=== PATIENT | female | born 1975 | race Caucasian/White ===

== ENCOUNTER → 2021-01-28 | Outpatient (CLI) | payer BC ==
[2021-01-28 14:42] LABS: CHOLESTEROL 193 MG/DL (< 200); HDL CHOLESTEROL 60 MG/DL (40-60); TRIGLYCERIDES 252 MG/DL (<150); VLDL CHOLESTEROL 50 MG/DL (5-40)
== END ==
LOC: LAB FS 09:43
PROVIDERS: ATTEND Family Medicine
DX: E78.5 Hyperlipidemia, unspecified (principal)
CPT/HCPCS: 36415; 80061

== ENCOUNTER → 2021-03-30 | Outpatient (CLI) | payer BC ==
[2021-03-30 12:38] LABS: POTASSIUM 4.2 MMOL/L (3.6-5.0)
[2021-03-30 12:39] LABS: ALBUMIN 4.2 GM/DL (3.2-4.5); BILIRUBIN,TOTAL 0.4 MG/DL (0.1-1.0); CALCIUM 9.5 MG/DL (8.5-10.1); CREATININE SERUM 0.75 MG/DL (0.60-1.30); TOTAL PROTEIN 7.1 GM/DL (6.4-8.2)
== END ==
LOC: LAB FS 10:57
PROVIDERS: ATTEND Family Medicine
DX: Z01.419 Encounter for gynecological examination (general) (routine) without abnormal findings (principal)
CPT/HCPCS: 36415; 80053

== ENCOUNTER 2021-04-20 05:36 | Outpatient (CLI) | payer BC ==
[~2021-04-20] VITALS: Ht 160 cm; Wt 77.3 kg
[2021-04-20] MEDS ORDERED: SIMV20TA26 PO (15:07)
[2021-04-20] MEDS ORDERED: FEXO-14 PO (15:07)
[2021-04-20] MEDS ORDERED: MULT-141 PO (15:07)
[2021-04-20] MEDS ORDERED: MAGN200T PO (15:07)
[2021-04-20] MEDS ORDERED: MELA1TAB20 PO (15:07)
[2021-04-20] MEDS ORDERED: CITA20TA9 PO (15:07)
[2021-04-20] MEDS ORDERED: [UNRECOGNIZED DRUG - CODE] PO (15:07)
[2021-04-20] MEDS ORDERED: PANT40TA52 PO (15:07)
== END 2021-04-20 15:08 ==
LOC: PREOP 05:36
PROVIDERS: ATTEND Surgery
DX: Z01.818 Encounter for other preprocedural examination (principal)

== ENCOUNTER 2021-04-28 10:51 | Day surgery (SDC) | payer BC ==
[~2021-04-28] VITALS: Ht 160 cm; Wt 77.3 kg
[~2021-04-28 10:51] MED LIST: CITA20TA9 PO; FEXO-14 PO; MAGN200T PO; MELA1TAB20 PO; MULT-141 PO; PANT40TA52 PO; SIMV20TA26 PO; [UNRECOGNIZED DRUG - CODE] PO
[2021-04-28] MEDS ORDERED: LACTATED RINGERS 1,000 ML IV ONE (10:56)
[2021-04-28] MEDS ORDERED: LACTATED RINGERS 1,000 ML IV STA (11:05)
[2021-04-28] MEDS ORDERED: HURRICAINE EXT TUBE (BENZOCAINE) XX PRN (11:15)
[2021-04-28 11:20] VITALS: BP 123/86
--- NOTE | 2021-04-28 11:36 | Progress Note-Pre Operative ---
Pre-Operative Progress Note H&P Reviewed The H&P was reviewed, patient examined and no changes noted. Date Seen by Provider: Apr 28, 2021 Time Seen by Provider: 11:36 Date H&P Reviewed: Apr 28, 2021 Time H&P Reviewed: 11:36 Pre-Operative Diagnosis: epigastric pain gerd, screening colonoscopy MEGHAN ROBISON DO Apr 28, 2021 11:36
[2021-04-28] MEDS ORDERED: PROPOFOL INJECTION 50 ML IV ONE (12:08)
--- NOTE | 2021-04-28 12:48 | Progress Note-Post Operative ---
Post-Operative Progess Note Surgeon (s)/Cementer Hand (s) Surgeon MEGHAN ROBISON DO Cementer Hand: na Pre-Operative Diagnosis epigastric pain gerd, screening colonoscopy Post-Operative Diagnosis Hiatal hernia with linear ulceration, reflux esophagitis, colon polyps Procedure & Operative Findings Date of Procedure 04/28/21 Procedure Performed/Findings egd c biopsies, colonoscopy c hot bx polypectomy and snare polypectomy Anesthesia Type per rubber grinder Estimated Blood Loss Estimated blood loss (mL): none Specimens/Packing Specimens Removed antrum, ge, colon polyps MEGHAN ROBISON DO Apr 28, 2021 12:48
--- NOTE | 2021-04-28 12:49 | Anesthesia-General Post-Op ---
MAC Patient Condition Mental Status/LOC: Same as Preop Cardiovascular: Satisfactory Nausea/Vomiting: Absent Respiratory: Satisfactory Pain: Controlled Complications: Absent Post Op Complications Complications None Follow Up Care/Instructions Patient Instructions None needed. Anesthesiology Discharge Order Discharge Order Patient is doing well, no complaints, stable vital signs, no apparent adverse anesthesia problems. No complications reported per nursing. MITCHEL SCHRADER CRNA Apr 28, 2021 12:48
[2021-04-28 12:50] VITALS: BP 125/78
[2021-04-28] MEDS ORDERED: SUCR1TAB36 PO (12:50)
--- NOTE | 2021-04-28 12:52 | Discharge Inst-Simple/Standard ---
Discharge Inst-Standard Discharge Medications New, Converted or Re-Newed RX: Transmitted to Pharmacy Patient Instructions/Follow Up Plan of Care/Instructions/FU: 2 weeks Trace Activity as Tolerated: Yes Discharge Diet: Regular Diet MEGHAN ROBISON DO Apr 28, 2021 12:52
[2021-04-28 13:00] VITALS: BP 121/76
[2021-04-28 13:25] VITALS: BP 114/84
--- NOTE | 2021-04-28 17:09 | OPERATIVE REPORT ---
DATE OF SERVICE: 04/28/2021 PREOPERATIVE DIAGNOSES: Epigastric abdominal pain, gastroesophageal reflux disease, screening colonoscopy. POSTOPERATIVE DIAGNOSES: Hiatal hernia with linear ulcerations at the GE junction, reflux esophagitis, colon polyps. PROCEDURE: EGD with biopsies, colonoscopy with hot biopsy polypectomy x1, and snare polypectomy x1. ANESTHESIA: Per FLEET MANAGER. SURGEON: Meghan Woodward DO ESTIMATED BLOOD LOSS: None. COMPLICATIONS: None. SPECIMENS: Antrum, GE junction, colon polyps. INDICATIONS: The patient is a 45-year-old female with epigastric abdominal pain, gastroesophageal reflux disease and needing screening colonoscopy. She understands risks and benefits of procedure and wished to proceed. Consent was signed in the chart. DESCRIPTION OF PROCEDURE: The patient was taken to the endoscopy suite, placed in left lateral recumbent position. Timeout was performed. Scope was inserted in mouth, down the esophagus, stomach and into the duodenum without difficulty. There were no polyps, masses, or ulcerations within the duodenum. Scope was slowly retracted back into the stomach where it was further insufflated. No polyps, masses, or ulcerations. Biopsy of the antrum was obtained. Scope was retroflexed noting hiatal hernia, no other pathology. Scope was returned to its normal position, slowly withdrawn to distal esophagus. There is a linear ulceration in the GE junction. Biopsy of the GE junction was obtained. Scope was slowly retracted back until completely removed. Digital rectal exam was performed. No palpable polyps, masses or ulcerations. Scope was inserted in the rectum and advanced all the way to cecum with minimal difficulty. Prep was adequate. Scope was then slowly retracted back. No polyps, masses or ulcerations within the cecum. In the ascending colon, there was a small polyp, which hot biopsy polypectomy was performed. Scope was then continuously retracted back into the transverse colon where a larger polyp was present, which snare polypectomy was performed. Scope was then continuously retracted back. No polyps, masses or ulcerations in remainder of the transverse, descending, and sigmoid colon. Once in the rectum, scope was retroflexed noting no other pathology. Scope was returned to its normal position, slowly withdrawn until completely removed. The patient tolerated the procedure well without any complications, taken to recovery room in stable condition. RECOMMENDATIONS: The patient will recommend repeat colonoscopy in 3 to 5 years depending upon pathology. Any issues before that be seen at that time. CC: Samantha Metzger -- requested, unable to deliver. Job ID: [id number] DocumentID: [id number] Dictated Date: 04/28/2021 12:55:07 Library Serials Assistant Date: 04/28/2021 17:08:19 Dictated By: MEGHAN WOODWARD DO
== END 2021-04-28 13:40 | disposition home or self-care (01) ==
LOC: ENDO 10:51
PROVIDERS: ATTEND Surgery
DX: Z12.11 Encounter for screening for malignant neoplasm of colon (principal); D12.2 Benign neoplasm of ascending colon; K21.00 Gastro-esophageal reflux disease with esophagitis, without bleeding; K44.9 Diaphragmatic hernia without obstruction or gangrene; K22.10 Ulcer of esophagus without bleeding; K51.40 Inflammatory polyps of colon without complications; E66.9 Obesity, unspecified; Z68.30 Body mass index [BMI] 30.0-30.9, adult
CPT/HCPCS: 84703

== ENCOUNTER → 2021-12-09 | Outpatient (CLI) | payer BC ==
[~2021-12-09] MED LIST changes: +SUCR1TAB36 PO
[2021-12-09 08:10] LABS: POTASSIUM 4.1 MMOL/L (3.6-5.0)
[2021-12-09 08:11] LABS: BILIRUBIN,TOTAL 0.2 MG/DL (0.1-1.0); CALCIUM 9.3 MG/DL (8.5-10.1); CREATININE SERUM 0.71 MG/DL (0.60-1.30); TOTAL PROTEIN 6.9 GM/DL (6.4-8.2)
== END ==
LOC: LAB FS 07:12
PROVIDERS: ATTEND Family Medicine
DX: E78.5 Hyperlipidemia, unspecified (principal)
CPT/HCPCS: 36415; 80053; 80061